=== PATIENT | female | born 1985 | race Two or more races ===

== ENCOUNTER 2019-05-21 02:08 | Emergency (ER) | payer SELFPAY ==
[~2019-05-21] VITALS: Ht 160 cm; Wt 61.2 kg
[2019-05-21 02:25] VITALS: BP 106/71
[2019-05-21] MEDS ORDERED: ONDANSETRON HCL/PF 4 MG/2 ML VIAL ONE (02:25)
[2019-05-21] MEDS ORDERED: ONDANSETRON HCL/PF 4 MG/2 ML VIAL IVP ONE (02:30)
[2019-05-21] MEDS ORDERED: IV NS 0.9% 1,000 ML BAG IV ONE (02:30)
--- NOTE | 2019-05-21 03:47 | NUR ---
IV removed. Catheter intact and site benign. Pressure and 4x4 applied to site. No bleeding noted. Patient discharged to home in stable condition. Written and verbal after care instructions given. Patient verbalizes understanding of instruction.
== END 2019-05-21 03:48 | disposition home or self-care (01) ==
LOC: ER 02:08
DX: R11.2 Nausea with vomiting, unspecified (principal); R19.7 Diarrhea, unspecified
CPT/HCPCS: 84703; 96361; 96374; 99283; J2405; J7030